=== PATIENT | male | born 1975 | race African-American/Black ===

== ENCOUNTER 2018-08-27 00:49 | Emergency (ER) | payer OTHER ==
[~2018-08-27] VITALS: Ht 190.5 cm; Wt 79.4 kg
[~2018-08-27 00:49] MED LIST: AUGMENTIN 875-1 EACH PO; CLEOCIN HCL150 MG PO; FLEXERIL PO; INVEGA SUS156 MG/1 M IM; KEFLEX500 MG PO; NOHOMEMEDICATIONS; PERCOCET 5-3251 EACH PO; PREDNISONE 10 M10 M1 PO; PREDNISONE 20 M20 MG PO; PREDNISONE50 MG PO; ROBAXIN500 MG PO; SEROQUEL400 MG PO; TRAMADOL 50 MG50 MG PO; ULTRAM 50MG TAB50 MG PO
[2018-08-27 04:29] VITALS: BP 112/79
== END 2018-08-27 04:50 | disposition home or self-care (01) ==
LOC: ER 00:49
DX: M54.5 Low back pain (principal); Y04.8XXA Assault by other bodily force, initial encounter; Y93.89 Activity, other specified; Y92.89 Other specified places as the place of occurrence of the external cause; Y99.8 Other external cause status; J45.909 Unspecified asthma, uncomplicated; F31.9 Bipolar disorder, unspecified; M10.9 Gout, unspecified; F20.9 Schizophrenia, unspecified

== ENCOUNTER 2019-11-05 23:00 | Emergency (ER) | payer OTHER ==
[~2019-11-05] VITALS: Ht 190.5 cm; Wt 86.2 kg
[2019-11-05 23:28] VITALS: BP 112/68
== END 2019-11-05 23:29 | disposition home or self-care (01) ==
LOC: ER 23:00
DX: L85.3 Xerosis cutis (principal); F17.210 Nicotine dependence, cigarettes, uncomplicated; J45.909 Unspecified asthma, uncomplicated; M10.9 Gout, unspecified; F20.9 Schizophrenia, unspecified; F31.9 Bipolar disorder, unspecified; Z90.49 Acquired absence of other specified parts of digestive tract; Z98.890 Other specified postprocedural states; Z88.6 Allergy status to analgesic agent; Z88.5 Allergy status to narcotic agent

== ENCOUNTER 2020-11-18 10:50 | Emergency (ER) | payer OTHER ==
[~2020-11-18] VITALS: Ht 180.3 cm; Wt 95.3 kg
--- NOTE | 2020-11-18 11:18 | EKG ---
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 : 1975 Requested By: Jessica Marroquin Order Number: [id number] MD: Candido Drew Measurements Intervals [place] Rate: 104 P: 68 IN: 168 QRS: 83 QRSD: 104 T: 62 QT: 345 QTc: 454 Interpretive Statements Sinus tachycardia Compared to ECG 05/30/2001 12:57:53 Sinus bradycardia no longer present Electronically Signed On 11-18-2020 11:18:16 ABORIGINAL EDUCATION WORKER COORDINATOR by Candido Drew [email or web address] <ELECTRONICALLY SIGNED> By: Candido Drew MD, [facility] 11/18/20 1118 1055 1055 Candido Drew MD, FACC /EPI
[2020-11-18 11:59] LABS: ABSOLUTE NEUTROPHILS 10.8 thou/uL (1.4-8.2); BASOPHILS 0.1 % (0.0-2.0); EOSINOPHILS 0.1 % (0.0-3.0); HEMOGLOBIN 13.7 gm/dL (14.0-18.0); LYMPHOCYTES 1.8 % (24.0-44.0); MCH 32.5 pg (26.0-34.0); MCHC 33.4 g/dL (28.0-37.0); MCV 97.2 fL (80.0-100.0); MONOCYTES 0.9 % (1.0-8.0); PLATELET COUNT 206 thou/uL (150-400); POLYS 97.1 % (36.0-66.0); RBC 4.21 mil/uL (4.50-6.00); RDW 12.4 % (10.5-14.5); WBC 11.1 thou/uL (4.0-11.0)
[2020-11-18 12:02] LABS: ANION GAP 12 mmol/L (7-16); BUN 13 mg/dL (7-18); CALCIUM 9.1 mg/dL (8.5-10.1); CHLORIDE 107 mmol/L (98-107); CO2 24 mmol/L (21-32); CREATININE 1.1 mg/dL (0.7-1.3); GLUCOSE 153 mg/dL (74-106); POTASSIUM 3.5 mmol/L (3.5-5.1); SODIUM 143 mmol/L (136-145)
[2020-11-18 12:12] LABS: ALBUMIN 3.3 g/dL (3.4-5.0); SGOT 544 U/L (15-37); SGPT 305 U/L (16-63); TOTAL BILIRUBIN 0.5 mg/dL (0.2-1.0); TROPONIN-I <0.06 ng/mL (<0.06)
[2020-11-18 13:17] LABS: AMP/METHAMP POSITIVE (Negative); BARBITURATES Negative (Negative); BENZODIAZEPINES Negative (Negative); COCAINE POSITIVE (Negative); METHADONE Negative (Negative); OPIATES Negative (Negative); PCP Negative (Negative)
[2020-11-18 13:30] VITALS: BP 121/65
== END 2020-11-18 13:30 | disposition home or self-care (01) ==
LOC: ER 10:50
PROVIDERS: Physician Assistant
DX: F15.10 Other stimulant abuse, uncomplicated (principal); R07.89 Other chest pain; F19.10 Other psychoactive substance abuse, uncomplicated; R94.5 Abnormal results of liver function studies; R06.02 Shortness of breath; R61 Generalized hyperhidrosis; J45.909 Unspecified asthma, uncomplicated; F20.9 Schizophrenia, unspecified; F31.9 Bipolar disorder, unspecified; F17.210 Nicotine dependence, cigarettes, uncomplicated; Z90.49 Acquired absence of other specified parts of digestive tract; Z88.8 Allergy status to other drugs, medicaments and biological substances; Z88.6 Allergy status to analgesic agent

== ENCOUNTER 2021-03-09 22:57 | Emergency (ER) | payer OTHER ==
[~2021-03-09] VITALS: Ht 190.5 cm; Wt 90.7 kg
[2021-03-09] MEDS ORDERED: LOTRIMIN AF150 GM SPRAY (23:23)
[2021-03-09] MEDS ORDERED: LOTRIMIN AF12 GM TOP (23:23)
[2021-03-09 23:41] VITALS: BP 116/68
== END 2021-03-09 23:41 | disposition home or self-care (01) ==
LOC: ER 22:57
DX: S01.81XA Laceration without foreign body of other part of head, initial encounter (principal); B35.3 Tinea pedis; M10.9 Gout, unspecified; F17.210 Nicotine dependence, cigarettes, uncomplicated; J45.909 Unspecified asthma, uncomplicated; F15.90 Other stimulant use, unspecified, uncomplicated; Z88.6 Allergy status to analgesic agent; Z88.5 Allergy status to narcotic agent; Y04.0XXA Assault by unarmed brawl or fight, initial encounter; Y93.89 Activity, other specified; Y92.89 Other specified places as the place of occurrence of the external cause; Y99.9 Unspecified external cause status

== ENCOUNTER 2021-04-09 17:04 | Emergency (ER) | payer OTHER ==
[~2021-04-09 17:04] MED LIST changes: +LOTRIMIN AF12 GM TOP; +LOTRIMIN AF150 GM SPRAY
[2021-04-09 17:30] VITALS: BP 140/86
== END 2021-04-09 18:30 | disposition home or self-care (01) ==
LOC: ER 17:04
DX: S00.85XA Superficial foreign body of other part of head, initial encounter (principal); F17.210 Nicotine dependence, cigarettes, uncomplicated; Z88.6 Allergy status to analgesic agent; Z88.5 Allergy status to narcotic agent; Z90.49 Acquired absence of other specified parts of digestive tract; X58.XXXA Exposure to other specified factors, initial encounter; Y93.89 Activity, other specified; Y92.89 Other specified places as the place of occurrence of the external cause; Y99.9 Unspecified external cause status

== ENCOUNTER 2021-04-23 03:03 | Emergency (ER) | payer OTHER ==
[~2021-04-23] VITALS: Ht 182.9 cm; Wt 86.6 kg
--- NOTE | ~2021-04-23 | EMS ---
[address] [address] EMS Patient Care Report Name: SUNIL DUBON Room #: DEP MAGY Thomas#: [id number] Admission: 04/23/21 Attend Phys: Discharge: 04/23/21 Date of : 77 Report #: [id number] THIS REPORT FOR: //name// Report Transmitted: 04/23/2021 22:11 EMS Care Summary [place], [place]/[facility] Incident [id number] @ 04/23/2021 02:29 Incident Location [address] [place], [place] [id number] Patient SUNIL DUBON Male, 46 Years 1975 Patient Address Homeless Patient History None Reported, Patient Allergies Ibuprofen,Tramadol, Patient Medications None Reported, Chief Complaint Fatigue Disposition Transported No Lights/[place] Reason Unconscious/Fainting Transported To [facility] Narrative AOS to find the pt laying on the front step of the house. The pt stated he was walking and blacked out, the pt stated he was weak on his feet and could not walk very far. The pt was transported to [facility] where care was transferred to RN. [address] [address] EMS Patient Care Report Name: SUNIL DUBON Room #: DEP ER Martha#: [id number] Admission: 04/23/21 Attend Phys: Discharge: 04/23/21 Date of : 77 Report #: [id number] Initial Vitals @02:50P: 87,SpO2: 84, @02:57P: 86,BP: 140/75,SpO2: 100, @02:50P: 114,R: 16,BP: 149/96,Pain: 0/10,GCS: 15,Glucose: 97,SpO2: 94,Revised Trauma: 12, Assessments @02:35MENTAL:Person Oriented,Time Oriented,Event Oriented,Place Oriented,SKIN:HEENT:Head/Face: No Abnormalities,Neck/Airway: No Abnormalities,LUNG SOUNDS:General: No Abnormalities,Left Upper: No Abnormalities,Right Upper: No Abnormalities,Left Lower: No Abnormalities,Right Lower: No Abnormalities,ABDOMEN:General: No Abnormalities,Left Upper: No Abnormalities,Right Upper: No Abnormalities,Left Lower: No Abnormalities,Right Lower: No Abnormalities,PELVIS//GI:EXTREMITIES:Capillary Refill: Right Upper: < 2 Sec,Capillary Refill: Left Upper: < 2 Sec,Right Leg: Weakness,Left Leg: Weakness,PULSE:Radial: 2+ Normal,NEURO:No Abnormalities, Impression Syncope / Fainting Timeline 02:28,Call Received 02:28,Dispatch Notified 02:29,Dispatched 02:32,En Route 02:33,On Scene 02:35,At Patient 02:50,BP: 149/96 M,PULSE: 114,RR: 16 R,SPO2: 94 Ox,ETCO2: ,B,PAIN: 0,GCS: 15, 02:50,BP: / M,PULSE: 87,RR: R,SPO2: 84 Ox,ETCO2: ,BG: ,PAIN: ,GCS: , 02:51,Depart Scene 02:57,BP: 140/75 M,PULSE: 86,RR: R,SPO2: 100 Ox,ETCO2: ,BG: ,PAIN: ,GCS: , 03:00,At Destination 03:12,Call Closed Disclaimer [email or web address] Copyright 2020 [employer] This EMS Care Summary contains data elements from the applicable legal record (which may be displayed differently). It is designed to provide pertinent information for the following purposes: continuity of care, clinical quality, and state data reporting. The complete legal record is available to ED staff and administrators of the receiving hospital in [employer] Patient Tracker. All data is provided "as is."
[2021-04-23 03:43] LABS: ABSOLUTE NEUTROPHILS 8.5 thou/uL (1.4-8.2); BASOPHILS 0.5 % (0.0-2.0); EOSINOPHILS 0.9 % (0.0-3.0); HEMATOCRIT 43.6 % (42.0-52.0); HEMOGLOBIN 14.9 gm/dL (14.0-18.0); LYMPHOCYTES 15.9 % (24.0-44.0); MCHC 34.1 g/dL (28.0-37.0); MCV 96.7 fL (80.0-100.0); MONOCYTES 5.4 % (1.0-8.0); PLATELET COUNT 257 thou/uL (150-400); POLYS 77.3 % (36.0-66.0); RBC 4.51 mil/uL (4.50-6.00); RDW 12.8 % (10.5-14.5)
[2021-04-23 03:51] LABS: ANION GAP 10 mmol/L (7-16); BUN 15 mg/dL (7-18); CALCIUM 9.3 mg/dL (8.5-10.1); CHLORIDE 104 mmol/L (98-107); CO2 27 mmol/L (21-32); CREATININE 1.1 mg/dL (0.7-1.3); GLUCOSE 114 mg/dL (74-106); POTASSIUM 3.9 mmol/L (3.5-5.1); SODIUM 141 mmol/L (136-145)
[2021-04-23 03:56] LABS: ALBUMIN 3.9 g/dL (3.4-5.0); SALICYLATE < 2.8 mg/dL (2.8-20.0); SGOT 25 U/L (15-37); SGPT 28 U/L (16-63); TOTAL BILIRUBIN 0.5 mg/dL (0.2-1.0); TOTAL PROTEIN 7.6 g/dL (6.4-8.2)
[2021-04-23 03:58] LABS: TROPONIN-I <0.06 ng/mL (<0.06)
[2021-04-23 04:39] VITALS: BP 109/57
[2021-04-23 04:57] LABS: URINE BILIRUBIN NEGATIVE (Negative); URINE BLOOD NEGATIVE (Negative); URINE CLARITY CLEAR; URINE COLOR YELLOW; URINE GLUCOSE-RANDOM* NEGATIVE (Negative); URINE KETONES NEGATIVE (Negative); URINE LEUKOCYTES-REFLEX NEGATIVE (Negative); URINE NITRITE-REFLEX NEGATIVE (Negative); URINE PROTEIN (DIPSTICK) NEGATIVE (Negative); URINE UROBILINOGEN 0.2 E.U./dl (0.2-1.0)
[2021-04-23 05:05] LABS: AMP/METHAMP POSITIVE (Negative); BARBITURATES Negative (Negative); BENZODIAZEPINES Negative (Negative); COCAINE Negative (Negative); METHADONE Negative (Negative); OPIATES Negative (Negative); PCP Negative (Negative)
--- NOTE | 2021-04-23 12:10 | EKG ---
[address] [place] [address] ELECTROCARDIOGRAM REPORT Name: SUNIL DUBON [id number] Admission: 04/23/21 Attend Phys: Discharge: 04/23/21 Date of : 77 Report #: [id number] [facility] ED Test Date: 2021-04-23 Test Time: 03:39:08 Pat Name: SUNIL DUBON Department: Room: Gender: M Clinical Trial Data Manager: : 1975 Requested By: Erich Ramirez Order Number: [id number] MD: Florentin Solorzano Measurements Intervals [place] Rate: 70 P: -16 [place]: 146 QRS: 68 QRSD: 107 T: 44 QT: 419 QTc: 453 Interpretive Statements Sinus rhythm Compared to ECG 11/18/2020 10:55:19 Sinus tachycardia no longer present Electronically Signed On 04-23-2021 12:10:00 CDT by Florentin Solorzano [email or web address] <ELECTRONICALLY SIGNED> By: Florentin Solorzano MD 04/23/21 1210 [id number] [id number] Florentin Solorzano MD /YUDELKA
== END 2021-04-23 04:53 | disposition home or self-care (01) ==
LOC: ER 03:03
PROVIDERS: Emergency Medicine
DX: R55 Syncope and collapse (principal); R20.2 Paresthesia of skin; J45.909 Unspecified asthma, uncomplicated; F31.9 Bipolar disorder, unspecified; F20.9 Schizophrenia, unspecified; F17.210 Nicotine dependence, cigarettes, uncomplicated; Z90.49 Acquired absence of other specified parts of digestive tract; Z98.890 Other specified postprocedural states; Z79.899 Other long term (current) drug therapy; Z88.6 Allergy status to analgesic agent